=== PATIENT | female | born 1930 | race Caucasian/White ===

== ENCOUNTER 2019-04-11 15:39 | Inpatient (IN) | payer MEDICARE, BC ==
[~2019-04-11] VITALS: Ht 162.6 cm; Wt 70.5 kg
--- NOTE | ~2019-04-11 | HEMODYNAMI ---
PATIENT:CHERRI GRIMM MEDICAL RECORD: [id number] : 34 [facility] [id number] ADMISSION DATE: 04/11/19 Generatedon:04/14/201913:41 Patient name: CHERRI GRIMM Patient #: [id number] SSN: D OB: 1930 Date of study: 04/14/2019 Page: Of Hemodynamic Procedure Report Patient Data Patient Demographics Procedure consent was obtained First Name: CHERRI Gender: Female Last Name: SIRISHA : 1930 [facility] Initial: GIOVANI Age: 89 year(s) Patient #: [id number] Race: Unknown Additional ID: [id number] Contact details Address: [address] [place] [address] State: [place] City: [facility] Zip code: [address] Past Medical History Allergies Allergen Reaction Date Comments Reported Sulfa drugs 04/14/2019 Admission Admission Data Admission Date: 04/11/2019 Admission Time: 17:21 Room #: D.2123 Weight (lbs.): 180.78 Weight (kg.): 82 Lab Results Lab Result Date: 04/14/2019 Lab Result Time: 0:00 Biochemistry Name Units Result Min Max BUN mg/dl 23 --(----)-* 7 18 Creatinine mg/dl 1.2 --(---*)-- 0.6 1.3 eGFR ml/min 45 *-(----)-- 90 120 NONAFRICAN CBC Name Units Result Min Max Hematocrit % 35.4 *-(----)-- 42 54 Hemoglobin g/dl 12 *-(----)-- 13.5 17.5 Procedure Procedure Types Cath Procedure Diagnostic Procedure [facility] w/Coronaries FFR/IVUS FFR Initial Intra-Coronary IVUS Initial Sedation Charges Moderate Sedation up to 30 minutes PCI Procedure Coronary Stent Coronary Stent Initial Procedure Description Procedure Date Procedure Date: 04/14/2019 Procedure Start Time: 13:04 Procedure End Time: 13:33 Procedure Staff Name Function Steven Christopher MD Performing Physician Landon Saha RT Scrub Verenice Aviles RT Scrub Angela Cabrera RT Monitor Patricia Sandhu RN Volunteer Recruitment Coordinator Procedure Data Cath Procedure Fluoroscopy Diagnostic fluoroscopy Total fluoroscopy Time: 8.2 time: 8.2 min min Diagnostic fluoroscopy Total fluoroscopy dose: 436 dose: 436 mGy mGy Contrast Material Contrast Material Type Amount (ml) Isovue 300 95 Entry Location Entry Primary Successful Side Size Upsize Upsize Entry Closure Succes sful Closure Location (Fr) 1 (Fr) 2 (Fr) Remarks Device Remarks Femoral Right 5 Fr 6 Fr Exoseal artery Short Estimated blood loss: 10 ml Diagnostic catheters Device Type Used For End Catheter Placement MULTIPACK Pigtail 5 Fr Procedure catheter MULTIPACK JL 4.0 5Fr Procedure catheter MULTIPACK 3DRC 5Fr Procedure catheter Procedure Complications No complications Procedure Medications Medication Administration Route Dosage 0.9% NaCl I.V. 100 ml/hr Oxygen etCO2 Nasal cannula 2 l/min Lidocaine 2% added to field 20 Heparin Flush Bag added to field 2 bags (1000units/500ml NS) Versed I.V. 2 mg Fentanyl I.V. 50 mcg Fentanyl I.V. 50 mcg Heparin Bolus I.V. 4000 units Plavix P.O. 75 mg Hemodynamics Rest HGB: 12 (g/dl) Heart Rate: 93 (bpm) Snapshots Pre Cath Intra NCS Post Cath Vital Signs Time Heart Resp SPO2 etCO2 NIBP (mmHg) Rhythm Pain Sedation Rate (ipm) (%) (mmHg) Status Level (bpm) 12:42:44 96 16 98 31 156/89(127) NSR 0 (11) 10(A) , No pain 12:47:03 91 17 98 31 151/81(120) NSR 0 (11) 10(A) , No pain 12:51:19 82 13 97 33.6 138/74(107) NSR 0 (11) 10(A) , No pain 12:55:37 73 14 98 30.6 138/68(106) NSR 0 (11) 10(A) , No pain 12:59:53 69 18 97 30 139/73(102) NSR 0 (11) 10(A) , No pain 13:04:09 81 15 97 33.6 135/78(91) NSR 0 (11) 10(A) , No pain 13:08:16 83 14 98 29.1 138/76(97) NSR 0 (11) 9(A) , No pain 13:12:28 84 14 97 22.4 142/76(110) NSR 0 (11) 9(A) , No pain 13:16:46 81 16 98 32.1 140/72(107) NSR 0 (11) 9(A) , No pain 13:21:02 78 17 97 31.3 134/75(106) NSR 0 (11) 9(A) , No pain 13:25:18 79 16 98 29.8 141/71(109) NSR 0 (11) 9(A) , No pain 13:29:36 79 16 98 33.6 129/74(108) NSR 0 (11) 10(A) , No pain 13:33:48 77 10 94 32.1 136/74(106) NSR 0 (11) 10(A) , No pain Medications Time Medication Route Dose Verified Delivered Reason Notes Effectiveness by by 12:57:08 Versed I.V. 2 mg Steven Patricia for sedation Ashwin Sandhu RN 12:57:20 Fentanyl I.V. 50 Steven Patricia for sedation mcg Ashwin Sandhu RN 12:58:01 0.9% NaCl I.V. 100 Steven Patricia used for ml/hr Ashwin Sandhu display artist 12:58:08 Oxygen etCO2 2 Steven Patricia used for Nasal l/min Ashwin Sandhu procedure cannula RN 12:58:16 Lidocaine 2% added 20ml Steven Steven for local to vial Ashwin Christopher MD anesthetic field 12:58:28 Heparin Flush added 2 Steven Steven used for Bag to bags Ashwin Christopher MD procedure (1000units/500ml field NS) 13:07:31 Fentanyl I.V. 50 Steven Patricia for sedation mcg Ashwin Sandhu RN 13:28:04 Heparin Bolus I.V. 4000 Steven Patricia for verif ied units Ashwin Sandhu anticoagulation with Dr. JARON Christopher 13:28:24 Plavix P.O. 75 mg Steven Patricia for Ashwin Sandhu antiplatelet RN therapy Procedure Log Time Note 12:20:56 Signed procedure consent form obtained from patient. 12:20:59 Diagnostic Cath status Urgent 12:21:00 Time tracking: Regular hours (M-F 7:00 - 5:00) 12:21:04 Plan of Care:Hemodynamics will remain stable., Cardiac rhythm will remain stable., Comfort level will be maintained., Respiratory function will remain adequate., Patient/ family verbilizes understanding of procedure., Procedure tolerated without complication., Recovers from procedure without complications.. 12:21:29 Patient allergic to Sulfa drugs 12::17 Lab Result : BUN 23 mg/dl 12::17 Lab Result : eGFR NONAFRICAN 45 ml/min 12::17 Lab Result : Creatinine 1.2 mg/dl 12:: Lab Result : Hemoglobin 12 g/dl 12:: Lab Result : Hematocrit 35.4 % 12:23:18 Landon MARX(R) sent for patient. Start room use. 12:23:46 Patient Weight : 180.78 lbs 12:34:32 Patient received from Med II to CCL 1 Alert and oriented. Tansferred to table in Supine position. 12:34:33 Warm blankets applied, and coby hugger turned on for patient comfort. 12:34:34 Correct patient and procedure confirmed by team. 12:34:35 ECG and BP/O2 sat monitors applied to patient. 12:41:40 Vital chart was started 12:41:41 Baseline sample Acquired. 12:42:00 Rhythm: sinus rhythm 12:42:01 Full Disclosure recording started 12:42:26 H&P Date Dictated: 04/13/2019 Within 30 days and on chart.. 12:42:33 Pre-procedure instructions explained to patient. 12:42:34 Pre-op teaching completed and patient verbalized understanding. 12:42:35 Family in patients room. 12:42:37 Patient NPO since Midnight. 12:42:43 Was the patient premedicated? No 12:43:15 Is patient on blood thinner?No 12:43:18 Patient diabetic? No. 12:43:21 Previous problem with sedation/anesthesia? No ? 12:43:21 Snore? Yes 12:43:23 Sleep apnea? No 12:43:24 Deviated septum? No 12:43:25 Opens mouth fully? Yes 12:43:26 Sticks out tongue? Yes 12:43:28 Airway obstruction? No ? 12:43:29 Dentures? No ? 12:43:33 Pre procedure: right dorsailis pedis pulse 1+ Palpable, but thready & weak; easily obliterated 12:43:36 Modified Hamzah's test Ulnar < 7 seconds 12:43:39 Patient pain scale 0/10 ?. 12:43:43 IV patent on arrival in left forearm with 0.9% NaCl at [facility]. 12:43:45 Lab results completed and on chart. 12:43:49 Right Radial & Right Groin area was prepped with chlora-prep and draped in sterile fashion 12:43:51 Alarms reviewed by R. N. 12:43:51 Sharps counted by scrub and verified by R.N. 12:53:14 Use device set Radial Dx or PCI 12:53:15 ACIST Syringe (06914) opened to sterile field. 12:53:16 Bag Decanter (2002S) opened to sterile field. 12:53:17 ACIST Hand Control (98604) opened to sterile field. 12:53:17 ACIST Manifold (11461) opened to sterile field. 12:53:18 Tegaderm 4 x 4 (1626W) opened to sterile field. 12:53:19 Medline Cath Pack ([id number]) opened to sterile field. 12:53:20 MBrace Wrist Support (518270094) opened to sterile field. 12:53:23 EMERALD Guide Wire (804-590) opened to sterile field. 12:53:30 SHEATH 6FR RAIN (3452112) opened to sterile field. 12:56:58 --------ALL STOP TIME OUT------ 12:56:58 Final Timeout: patient, procedure, and site verified with staff and physician. All members of the team are in agreement. 12:57:01 Right Radial & Right Groin site verified by team. 12:57:04 Fire Safety Assessment: A--An alcohol-based skin anteseptic being used preoperatively., C--Open oxygen or nitrous oxide is being used., D--An ESU, laser, or fiber-optic light is being used. 12:57:08 Versed 2 mg I.V. was administered by Patricia Sandhu RN; for sedation; 12:57:08 Physical assessment completed. ASA score P 2 - A patient with mild systemic disease as per Steven Christopher MD. 12:57:13 3a) 45-59 Moderately reduced kidney function. 12:57:16 Maximum allowable contrast does (3.7 X eGFR X 0.75)125 ml. 12:57:20 Fentanyl 50 mcg I.V. was administered by Patricia Sandhu RN; for sedation; 12:57:20 Sedation plan: IV Moderate Sedation Medication:Versed, Fentanyl 12:58:01 0.9% NaCl 100 ml/hr I.V. was administered by Patricia Sandhu RN; used for procedure; 12:58:08 Oxygen 2 l/min etCO2 Nasal cannula was administered by Patricia Sandhu RN; used for procedure; 12:58:16 Lidocaine 2% 20ml vial added to field was administered by Steven Christopher MD; for local anesthetic; 12:58:28 Heparin Flush Bag (1000units/500ml NS) 2 bags added to field was administered by Steven Christopher MD; used for procedure; 13:04:23 Procedure started. 13:04:30 Local anesthetic to right radial artery with Lidocaine 2% by Steven Christopher MD.INITIAL ACCESS ONLY 13:06:36 UNABLE TO ADVANCE WIRE. PROCEED TO GROIN 13:06:41 Local anesthetic to right femoral artery with Lidocaine 2% by Steven Christopher MD.ADDITIONAL ACCESS 13:06:48 SHEATH 5FR Davilla (HRY513) opened to sterile field. 13:06:50 Use device set Multipack Set 13:06:54 DIAGNOSTIC Multipack 5Fr catheter set ([id number]) opened to sterile field. 13:07:11 A 5 Fr sheath was inserted into the Right Femoral artery 13:07:31 Fentanyl 50 mcg I.V. was administered by Patriica Sandhu RN; for sedation; 13:07:35 A MULTIPACK Pigtail 5 Fr catheter was advanced over the wire and used for Procedure. 13:07:42 LV gram done using JARAMILLO 13:07:45 Injector settings: Ml/sec: 10, Volume: 20, 13:08:09 EF : 60 % 13:08:10 Catheter removed. 13:08:24 A MULTIPACK JL 4.0 5Fr catheter was advanced over the wire and used for Procedure. 13:09:46 LCA angiography performed. 13:09:57 Catheter removed. 13:10:02 A MULTIPACK 3DRC 5Fr catheter was advanced over the wire and used for Procedure. 13:10:28 RCA angiography performed. 13:10:29 Catheter removed. 13:10:34 SHEATH 6FR Davilla (SDX653) opened to sterile field. 13:10:55 INFLATOR Merit BasixCompak (QH8170) opened to sterile field. 13:10:56 [place] Verrata Plus pressure wire (17265M) opened to sterile field. 13:11:05 Sheath upsized to a 6 Fr Short. 13:11:12 GUIDE 6FR XBLAD 3.5 catheter (79462341) opened to sterile field. 13:11:26 6 Fr XBLAD 3.5 guide catheter was inserted over the wire 13:18:20 [place] Verrata Plus pressure wire (14571S) opened to sterile field. 13:22:15 FFR/IFR wire advanced. 13:22:15 Wire advanced across lesion. 13:22:27 mLAD lesion measured at .96 with IFR 13:23:18 [place] Eagleye IVUS Catheter (46154F) opened to sterile field. 13:26:08 IVUS catheter advanced over wire. 13:26:09 IVUS pass to LAD lesion performed. 13:26:10 IVUS catheter removed over wire. 13:28:04 Heparin Bolus 4000 units I.V. was administered by Patricia Sandhu RN; for anticoagulation; verified with Dr. Christopher 13:28:24 Plavix 75 mg P.O. was administered by Patricia Sandhu RN; for antiplatelet therapy; 13:28:49 Place stent Inflation Number: 1 A COBRA RX 2.5 X 18 Stent was prepped and advanced across the Mid LAD 77. The stent was deployed at 11 HELEN for 0:10 (min:sec) 0. 13:29:20 Stent catheter was removed intact over wire. 13:29:21 Wire removed. 13:29:21 Guide catheter removed. 13:29:28 EXOSEAL 6Fr (EX600) opened to sterile field. 13:29:40 Sheath removed intact; hemostasis achieved with Exoseal to the Right Femoral artery. 13:29:43 Procedure ended.(Physican Out) 13:31:54 Fluoroscopy time 08.20 minutes. 13:31:58 Fluoroscopy dose: 436 mGy 13:31:58 Flurop Dose total: 436 13:32:02 Contrast amount:Isovue 300 95ml. 13:32:04 Sharps counted by scrub and verified by R.N. 13:32:10 Post-op/insertion site Right Femoral artery dressed using a 4 x 4 and Tegaderm. 13:32:13 Post-procedure physical assessment completed. ASA score P 2 - A patient with mild systemic disease as per Steven Christopher MD. 13:32:16 Post procedure rhythm: sinus rhythm 13:32:18 Estimated blood loss: 10 ml 13:32:19 Post procedure instruction explained to patient.Patient verbalizes understanding. 13:32:20 Patient needs reinforcement of post procedure teaching. 13:32:43 Procedure type changed to Cath procedure, Diagnostic procedure, LHC, LHC w/Coronaries, FFR/IVUS, FFR Initial, Intra-Coronary IVUS Initial, Sedation Charges, Moderate Sedation up to 30 minutes, PCI procedure, Coronary Stent, Coronary Stent Initial 13:33:16 Procedure and supply charges have been captured, reviewed, submitted and are correct. 13:33:18 Procedure Complication : No complications 13:33:21 Vital chart was stopped 13:33:21 See physician's report for complete and final results. 13:33:24 Report given to PCU. 13:33:26 Patient transfered to PCU with Bed. 13:33:41 Procedure ended. 13:33:41 Full Disclosure recording stopped 13:33:47 End room use (Document Last) Intervention Summary Intervention Notes Time ActionType Lesion and Equipment Action# Pressure Duration Attributes Used 13:28:49 Place stent Mid LAD COBRA RX 1 11 00:10 2.5 X 18 Stent Device Usage Item Name Manufacture Quantity Catalog Hospital Part Current Minimal Lot# / Number Charge Number Stock Stock Serial# Code ACIST Syringe Acist 1 47783 483605 652773 695479 20 (59358) Medical Systems Inc Bag Decanter Microtek 1 2001S 896014 76157 093981 5 () Medical Inc. ACIST Hand Acist 1 80332 433779 722527 357512 5 Control Medical (75750) Systems Inc ACIST Manifold Acist 1 99605 423283 623146 045118 5 (29455) Medical Systems Inc Tegaderm 4 x 4 3M 1 1626W 962383 303100 994052 5 (1626W) Medline Cath Medline 1 [id number] 598783 42328 671655 5 Pack ([id number]) MBrace Wrist Advanced 1 140-0250-00 912203 71423 188064 5 Support Vascular ([id number]) Dynamics EMERALD Guide Cardinal 1 502-455 685310 146362 517742 5 Wire (502-455) Health SHEATH 6FR Cardinal 1 8366318 590744 7830117 980262 5 RAIN (8550438) Health SHEATH 5FR Terumo 1 MHJ788 998012 100627 674135 5 Davilla (MWF078) DIAGNOSTIC Cardinal 1 VX8093 233383 21842 582544 30 Multipack 5Fr Health catheter set (MN5978) MULTIPACK Cardinal 1 162671 5 Pigtail 5 Fr Health catheter MULTIPACK JL Cardinal 1 932205 5 4.0 5Fr Health catheter MULTIPACK 3DRC Cardinal 1 332086 5 5Fr catheter Health SHEATH 6FR Terumo 1 UBY189 893387 296376 435855 40 Davilla (IGE081) INFLATOR Merit Merit 1 BY3670 785234 124685 144329 15 ITT EXIMTooele Valley HospitalLTG Federal Medical (UK7422) [facility] 2 96824Z 605053 691034874 257074 5 Verrata Plus pressure wire (13762E) GUIDE 6FR Cardinal 1 [id number] 376053 161342 932051 10 XBLAD 3.5 Health catheter ([id number]) [facility] 1 33357A 033939 565491 325530 8 [place] Eagleye IVUS Catheter (71575D) COBRA RX 2.5 X Celonova 1 684-07-49974 029918 [id number] 99303130 4 [id number] 18 stent Biosciences (084-64-86414) EXOSEAL 6Fr Cardinal 1 EX600 895118 460613 697512 10 (EX600) Health Signature Audit [place] Stage Time Signature Unsigned Intra-Procedure 04/14/2019 Angela Cabrera 1:41:49 PM RT(R) Signatures Monitor : Angela Cabrera Signature : RT Date : Time : [place] [address] [place] [address]
[2019-04-11] MEDS ORDERED: CALCIUM 250+D T1 TAB PO (15:50)
[2019-04-11] MEDS ORDERED: BAYER CHEWABLE81 MG PO (15:50)
[2019-04-11] MEDS ORDERED: AMOXICILLIN500 M1 PO (15:50)
[2019-04-11] MEDS ORDERED: CARDURA2 MG PO (15:51)
[2019-04-11] MEDS ORDERED: GLUCOSAMINE HC500 MG PO (15:51)
[2019-04-11] MEDS ORDERED: SYNTHROID50 MCG PO (15:52)
[2019-04-11] MEDS ORDERED: NAPROSYN500 MG PO (15:53)
[2019-04-11] MEDS ORDERED: ZOCOR20 MG PO (15:53)
[2019-04-11] MEDS ORDERED: METOPROLOL TART50 MG PO (15:53)
[2019-04-11] MEDS ORDERED: ZANAFLEX4 MG PO (15:54)
[2019-04-11 16:00] VITALS: BP 195/86
--- NOTE | 2019-04-11 16:10 | NUR ---
HOW SSRS DEVELOPER, HIMA, NOTIFIED THAT PT REQUIRED SUICIDE ASSESSMENT BASED ON SUICIDE ASSESSMENT.
[2019-04-11 16:27] LABS: HEMATOCRIT 38.4 % (36.0-48.0); HEMOGLOBIN 13.3 g/dL (12-16); MCH 33.5 pg (26.0-34.0); MCHC 34.6 g/dL (31.0-37.0); MCV 96.7 fL (80.0-100.0); MEAN PLATELET VOLUME 9.1 fL (7.4-10.4); PLATELET COUNT 209 10x3/uL (130-400); RBC 3.97 10x6/uL (4.00-5.40); RDW 11.8 % (11.5-14.5); WBC 6.3 10x3/uL (4.8-10.8)
--- NOTE | 2019-04-11 16:28 | NUR ---
PT GIVEN SPECIMEN CUP AND ASKED TO PROVIDE URINE SAMPLE NICO FOR ORDERED LABS.
[2019-04-11 16:40] VITALS: BP 210/93
[2019-04-11 16:40] LABS: INR 1.04 (0.85-1.17); PROTIME 13.1 SECONDS (11.6-15.0)
[2019-04-11 16:41] LABS: APTT 32.7 SECONDS (22.8-39.4)
[2019-04-11 16:43] LABS: ALBUMIN 3.7 g/dL (3.4-5.0); ALKALINE PHOSPHATASE 69 U/L (46-116); ALT (SGPT) 20 U/L (10-68); BILIRUBIN - TOTAL 0.37 mg/dL (0.2-1.3); CALC OSMOLALITY 277 mosm/kg (275-300); CARBON DIOXIDE 28.8 mmol/L (21.0-32.0); CHLORIDE - SERUM 102 mmol/L (98-107); CREATININE - SERUM 1.4 mg/dL (0.6-1.3); GLUCOSE 105 mg/dL (74-106); POTASSIUM - SERUM 4.2 mmol/L (3.5-5.1); PROTEIN - SERUM 7.3 g/dL (6.4-8.2); SODIUM 137 mmol/L (136-145); UREA NITROGEN 25 mg/dL (7-18); eGFR NON AFRICAN AMERICAN 38 mL/min (90-120)
[2019-04-11 16:52] LABS: MAGNESIUM - SERUM 2.4 mg/dL (1.8-2.4); PRO BNP 480 pg/mL (0-450); THYROID STIMULATING HORMONE 3.97 uIU/mL (0.36-3.74)
[2019-04-11 16:58] LABS: TROPONIN-I < 0.017 ng/mL (0.000-0.060)
[2019-04-11 17:21] VITALS: BP 158/71
--- NOTE | 2019-04-11 17:24 | NUR ---
DR. STANFORD NOTIFIED AND REVIEWED PATIENT'S BEHAVIOR AND ASSESSMENT RESULTS. PATIENT IS A LOW RISK PER DR. STANFORD. DR. STANFORD STATED TO GIVE RESOURCES TO PATIENT. NO FURTHER ORDERS AT THIS TIME. RESOURCES REVIEWED WITH PATIENT AND SHE VERBALIZES UNDERSTANDING.
--- NOTE | 2019-04-11 18:01 | NUR ---
ROOM 2129 ASSIGNED AT 1717, MARKED DIRTY WITH "STAT CLEAN" REQUESTED. THIS NURSE CALLED REPORT TO ARABELLA RECEIVING NURSE AT 1743. ROOM REMAINS DIRTY. WILL TRANSPORT PT TO ASSIGNED ROOM WHEN NOTIFIED THAT ASSIGNED ROOM IS CLEAN AND READY FOR PT. PT LYING IN BED, RESPIRATIONS EVEN AND UNLABORED. NO SIGNS OF DISTRESS. DINNER TRAY ORDERED FOR PT PER DIETARY ORDERS. CALL LIGHT IN REACH.
[2019-04-11 18:22] LABS: EOSINOPHILS 2 % (0-7); LYMPHOCYTES 41 % (15-50); MONOCYTES 1 % (2-11); NEUTROPHILS 56 % (40-80); PLATELET ESTIMATE NORMAL
--- NOTE | 2019-04-11 18:27 | NUR ---
URINE SAMPLE SENT TO THE LAB AT THIS TIME, PT GIVEN DINNER TRAY.
[2019-04-11 18:56] LABS: APPEARANCE CLEAR (CLEAR); BILIRUBIN NEGATIVE (NEGATIVE); COLOR YELLOW (YELLOW); GLUCOSE NEGATIVE (NEGATIVE); KETONE NEGATIVE (NEGATIVE); NITRITE NEGATIVE (NEGATIVE); PROTEIN NEGATIVE (NEGATIVE); UROBILINOGEN NORMAL (NORMAL)
--- NOTE | 2019-04-11 19:20 | NUR ---
PT IS A RECENT NEW ADMIT I TOOK REPORT AND FOUND PT IN ROOM I ASSISTED WITH COMFORT AND BEGIN TO GO THROUGH MED REC AND HISTORY BED LOW AND LOCKED CALL L;IGHT PROVIDED TO PT IV TO LEFT AC AND IS PATENT LCTA AND SKIN WARM AND DRY
[2019-04-11 20:00] VITALS: BP 140/67
[2019-04-11 23:20] LABS: CKMB 0.6 U/L (0.0-3.6); CREATINE KINASE 49 UL (21-215); TROPONIN-I < 0.017 ng/mL (0.000-0.060)
[2019-04-12] VITALS: BP 142/66
[2019-04-12 02:19] VITALS: BP 140/67; BMI 30.9
[2019-04-12 06:06] LABS: BASOPHILS 0.4 % (0-2); EOSINOPHILS 4.9 % (0-7); HEMATOCRIT 35.1 % (36.0-48.0); IMMATURE GRANULOCYTES 0.7 % (0-5); LYMPHOCYTES 42.2 % (15-50); MCH 32.5 pg (26.0-34.0); MCHC 34.2 g/dL (31.0-37.0); MCV 95.1 fL (80.0-100.0); MEAN PLATELET VOLUME 9.4 fL (7.4-10.4); MONOCYTES 9.8 % (2-11); PLATELET COUNT 209 10x3/uL (130-400); RBC 3.69 10x6/uL (4.00-5.40); RDW 11.8 % (11.5-14.5); WBC 5.7 10x3/uL (4.8-10.8)
[2019-04-12 06:35] LABS: CALC OSMOLALITY 280 mosm/kg (275-300); CARBON DIOXIDE 28.2 mmol/L (21.0-32.0); CHLORIDE - SERUM 105 mmol/L (98-107); CKMB 1.5 U/L (0.0-3.6); CREATINE KINASE 612 UL (21-215); CREATININE - SERUM 1.3 mg/dL (0.6-1.3); GLUCOSE 83 mg/dL (74-106); MAGNESIUM - SERUM 2.3 mg/dL (1.8-2.4); PHOSPHOROUS 3.8 mg/dL (2.5-4.9); SODIUM 139 mmol/L (136-145); TROPONIN-I < 0.017 ng/mL (0.000-0.060); UREA NITROGEN 24 mg/dL (7-18); eGFR NON AFRICAN AMERICAN 41 mL/min (90-120)
--- NOTE | 2019-04-12 06:40 | NUR ---
ORTHO BP 171/80 157/87 158/79
[2019-04-12 06:49] VITALS: BP 171/80
--- NOTE | 2019-04-12 07:30 | NUR ---
ALERT AND ORIENTED. TELEMERTY SHOWS SR 69, LEFT AC SL. UP AB JUAN DAVID. SCDS ON. DENIES ANY C/P OR SYNCOPE. SR. UP WITH CALL LIGHT IN REACH
[2019-04-12 09:15] VITALS: BP 172/80
--- NOTE | 2019-04-12 10:19 | NUR ---
PT TO DIALYSIS PER WHEELCHAIR
[2019-04-12 11:31] LABS: CKMB 0.2 U/L (0.0-3.6); CREATINE KINASE 26 UL (21-215); TROPONIN-I < 0.017 ng/mL (0.000-0.060)
[2019-04-12 12:16] VITALS: BP 143/71
[2019-04-12 12:35] VITALS: Ht 162.6 cm; Wt 70.5 kg
--- NOTE | 2019-04-12 16:13 | NUR ---
PT BACK IN ROOM POST STRESS TEST. SCD'S REAPPLIED. NO NEEDS AT THIS TIME.
[2019-04-12 20:00] VITALS: BP 133/82
--- NOTE | 2019-04-12 22:30 | NUR ---
REPORT RECIEVED AND ROUNDING COMPLETE. BEGINING PAITENT CARE WITH THE ASSISTANCE FROM LANA GARCIA RN.
[2019-04-13] VITALS: BP 130/76
[2019-04-13 04:00] VITALS: BP 129/70
[2019-04-13 06:38] LABS: BASOPHILS 0.2 % (0-2); EOSINOPHILS 3.4 % (0-7); HEMATOCRIT 37.3 % (36.0-48.0); HEMOGLOBIN 12.8 g/dL (12-16); IMMATURE GRANULOCYTES 0.6 % (0-5); LYMPHOCYTES 45.4 % (15-50); MCH 32.6 pg (26.0-34.0); MCHC 34.3 g/dL (31.0-37.0); MCV 94.9 fL (80.0-100.0); MEAN PLATELET VOLUME 9.1 fL (7.4-10.4); MONOCYTES 10.4 % (2-11); PLATELET COUNT 179 10x3/uL (130-400); RBC 3.93 10x6/uL (4.00-5.40); RDW 11.9 % (11.5-14.5)
[2019-04-13 06:47] LABS: WBC 8.5 10x3/uL (4.8-10.8)
[2019-04-13 07:01] LABS: ANION GAP 15.3 mmol/L (8-16); CALCIUM 8.6 mg/dL (8.5-10.1); CARBON DIOXIDE 25.5 mmol/L (21.0-32.0); MAGNESIUM - SERUM 2.3 mg/dL (1.8-2.4); PHOSPHOROUS 3.9 mg/dL (2.5-4.9); POTASSIUM - SERUM 3.8 mmol/L (3.5-5.1)
--- NOTE | 2019-04-13 07:48 | NUR ---
INITIAL ROUNDING, PATIENT IS SLEEPING SUPINE, LIGHTS AND TV OFF. WHITE BOARD UPDATED. CALL LIGHT IN REACH
[2019-04-13 08:03] VITALS: BP 129/70
--- NOTE | 2019-04-13 09:06 | NUR ---
MORNING MEDICATIONS HELD FOR PENDING STRESS TEST AT 1030
--- NOTE | 2019-04-13 09:29 | NUR ---
PER TERRI IN NUC MED, THE PATIENT CAN TAKE ALL MORNING MEDS INCLUDING HEART MEDICATIONS WITH A SMALL SIP OF WATER. MEDICATIONS ORDERED TO BE GIVEN AT THIS TIME REVIEWED WITH TERRI AND SHE AGREED THE PATIENT CAN TAKE ALL WITH A SIP OF WATER, STATING "WE ARE NOT WORRIED ABOUT THE MEDICATIONS, CONCERNED ABOUT FOOD AND CAFFINE"
[2019-04-13 12:06] VITALS: BP 138/69
--- NOTE | 2019-04-13 19:10 | NUR ---
BED SIDE REPORT RECEIVED. PT IS AAO, ASKING QUESTIONS ABOUT HEART CATH. ANSWERED QUESTIONS AND CONCERNS. PT DENIES ANY OTHER QUESTIONS AT THIS TIME. NAME AND DATE PLACED ON BOARD. PT BED LOW AND CALL LIGHT IN REACH. WILL CPOC
[2019-04-13 19:13] VITALS: BP 128/65
[2019-04-13 20:00] VITALS: BP 129/63
--- NOTE | 2019-04-13 21:42 | NUR ---
MOVED PT TO ROOM 2122 FROM 2128 TO HAVE PT CLOSER TO U
--- NOTE | 2019-04-13 23:56 | NUR ---
NIGHT MEDICATIONS GIVEN. PT SIGNED HEART CATH CONSENT AND BLOOD CONSENT. DENIES ANY QUESTIONS OR CONCERNS AT THIS TIME. PT UP TO RESTROOM, STAND BYE ASSIST. PT GAIT STEADY. DENIES FEELING DIZZY OR HAVING SOB. PT BACK INTO BED. VERBALIZED UNDERSTANDING OF NPO AFTER MIDNIGHT. NOURISHMENT REMOVED FROM BED SIDE. PT HAS NS INFUSING ORDERED. NO S/S OF DISTRESS. WILL CPOC
[2019-04-14] VITALS (7 sets, daily range): BP systolic 103–162; BP diastolic 50–102
--- NOTE | 2019-04-14 05:11 | NUR ---
ORTHOSTATIC VITALS 162/70 LYING 161/85 SITTING 109/67 STANDING 117- PULSE 18 RR 94% RA
--- NOTE | 2019-04-14 05:53 | NUR ---
UNHOOKED PT FROM IV TO GET A BATH AND UNDRESS. PT GIVEN PROTONIX AND SYNTROID WITH SMALL SIP OF WATER. PT IS AAO. HAS NO S/S OF DISTRESS. WILL CPOC
--- NOTE | 2019-04-14 06:03 | NUR ---
PT CLEANING SELF WITH CHG WIPES AND USING RESTROOM. GOWN CHANGED. PT READY FOR HEART CATH. DENIES ANY QUESTIONS OR CONCERNS. WILL CPOC
[2019-04-14 06:13] LABS: BASOPHILS 0.4 % (0-2); EOSINOPHILS 4.5 % (0-7); HEMATOCRIT 35.4 % (36.0-48.0); IMMATURE GRANULOCYTES 0.6 % (0-5); LYMPHOCYTES 36.2 % (15-50); MCH 32.3 pg (26.0-34.0); MCHC 33.9 g/dL (31.0-37.0); MCV 95.2 fL (80.0-100.0); MEAN PLATELET VOLUME 9.4 fL (7.4-10.4); MONOCYTES 8.9 % (2-11); NEUTROPHILS 49.4 % (40-80); PLATELET COUNT 181 10x3/uL (130-400); RBC 3.72 10x6/uL (4.00-5.40); WBC 6.7 10x3/uL (4.8-10.8)
[2019-04-14 06:42] LABS: ANION GAP 13.2 mmol/L (8-16); CALCIUM 8.3 mg/dL (8.5-10.1); CARBON DIOXIDE 24.4 mmol/L (21.0-32.0); CREATININE - SERUM 1.2 mg/dL (0.6-1.3); MAGNESIUM - SERUM 2.2 mg/dL (1.8-2.4); PHOSPHOROUS 3.7 mg/dL (2.5-4.9); POTASSIUM - SERUM 3.6 mmol/L (3.5-5.1)
--- NOTE | 2019-04-14 09:51 | NUR ---
I have reviewed this patient and I concur with the Shift Assessment completed by the Licensed Practical Nurse today this shift.
--- NOTE | 2019-04-14 12:42 | NUR ---
TO MOTION PICTURE PROJECTIONIST PER BED
--- NOTE | 2019-04-14 14:00 | NUR ---
RECIVED FROM RISK CONTROL MANAGER PER BED. RT GROWN DRSG C/D/I, SMALL HEMATOMA UNDER SKIN NOTED. PULSE PALP. FAMILY AT SIDE.
--- NOTE | 2019-04-14 17:25 | NUR ---
RT GROIN REMAINS C/D PULSE PALP. WITHOUT CHANGES OR DISTRESS NOTED AT THIS TIME. DENIES NEEDS.
--- NOTE | 2019-04-14 22:30 | NUR ---
INITIAL ROUNDS COMPLETED AT 1915 HRS. PT DENIED ANY DISCOMFORT. ASSESSMENT COMPLETED AT 2015 HRS. VSS. SR WITH BBB PER CM HR 73. ALERT AND ORIENTED TO PERSON, PLACE AND TIME. VAZQUEZ. IV TO LAC SL. LUNGS CTA. R GROIN CLEAN, DRY AND INTACT. SWELLING NOTED AND MARKED. PALPABLE PEDAL PULSES. PM MEDS GIVEN. PT CURRENTLY RESTING WITH EYES CLOSED. RESP EVEN AND REGULAR. SR UP X2, CALL LIGHT WITHIN REACH.
[2019-04-15] VITALS: BP 134/67
--- NOTE | 2019-04-15 00:42 | NUR ---
NO CHANGES TO R GROIN OR PEDAL PULSES. DENIES ANY DISCOMFORT. SR UP X2, CALL LIGHT WITHIN REACH.
--- NOTE | 2019-04-15 02:24 | NUR ---
PT RESTING WITH EYES CLOSED. RESP EVEN AND REGULAR. SR UP X2, CALL LIGHT WITHIN REACH.
[2019-04-15 04:00] VITALS: BP 132/62
--- NOTE | 2019-04-15 04:36 | NUR ---
VSS. NO CHANGES TO R GROIN OR PEDAL PULSES NOTED. SR UP X2, CALL LIGHT WITHIN REACH.
[2019-04-15 05:43] LABS: BASOPHILS 0.3 % (0-2); EOSINOPHILS 5.2 % (0-7); HEMATOCRIT 34.4 % (36.0-48.0); HEMOGLOBIN 11.9 g/dL (12-16); IMMATURE GRANULOCYTES 0.3 % (0-5); LYMPHOCYTES 24.1 % (15-50); MCH 32.8 pg (26.0-34.0); MCHC 34.6 g/dL (31.0-37.0); MCV 94.8 fL (80.0-100.0); MEAN PLATELET VOLUME 9.6 fL (7.4-10.4); MONOCYTES 10.4 % (2-11); NEUTROPHILS 59.7 % (40-80); PLATELET COUNT 181 10x3/uL (130-400); RBC 3.63 10x6/uL (4.00-5.40); WBC 7.5 10x3/uL (4.8-10.8)
[2019-04-15 06:07] LABS: ANION GAP 11.4 mmol/L (8-16); CALCIUM 7.9 mg/dL (8.5-10.1); CARBON DIOXIDE 24.2 mmol/L (21.0-32.0); CREATININE - SERUM 1.1 mg/dL (0.6-1.3); MAGNESIUM - SERUM 2.2 mg/dL (1.8-2.4); PHOSPHOROUS 3.8 mg/dL (2.5-4.9); POTASSIUM - SERUM 3.6 mmol/L (3.5-5.1)
--- NOTE | 2019-04-15 06:14 | NUR ---
VSS THROUGHOUT NIGHT. SR PER CM. PT DENIED ANY DISCOMFORT. NEEDS MET; WILL CONTINUE TO MONITOR.
--- NOTE | 2019-04-15 07:45 | NUR ---
ASSESSMENT COMPLETED. ALERT AND ORIENTED. TELEMERTY SHOWS SR. LEFT AC SL. RIGHT ROIN SOFT. NO BLEEDING. SMALL FIRM AREA NOTED. UP AB JUAN DAVID. LUNGS CLEAR. DENIES ANY NEEDS. WANTING TO GO HOME.
[2019-04-15 09:37] VITALS: BP 134/68
[2019-04-15] MEDS ORDERED: CARDURA4 MG PO (13:45)
[2019-04-15] MEDS ORDERED: Procardia XL PO (13:49)
[2019-04-15] MEDS ORDERED: PLAVIX75 MG PO (13:50)
--- NOTE | 2019-04-15 14:48 | MORECARE ---
CASE MANAGEMENT DISCHARGE SUMMARY PATIENT: CHERRI GRIMM GIOVANI UNIT: [id number] ADM DATE: 04/11/19 AGE: 89 : 32 SEX: F ROOM/BED: D.2123 AUTHOR: MARISABEL KINSEY PHYSICIAN: REFERRING PHYSICIAN: KAYY TENORIO MD DATE OF SERVICE: 04/15/19 Discharge Plan Patient Name: CHERRI GRIMM Facility: [facility]:[place] : 1930 Planned Disposition: Home Anticipated Discharge Date: 04/15/19 Discharge Date: Expected LOS: 4 Initial Reviewer: [email or web address] Initial Review Date: 04/11/2019 Generated: 04/15/19 3:48 pm Patient Name: CHERRI GRIMM Page [phone] at 1448 All edits/amendments must be made on the electronic document DICTATION DATE: 04/15/191446 TRACTOR OPERATOR HELPER: EDE 04/15/19 1447 RPT#: [id number] DC DATE: STATUS: ADM IN [facility] [address] [place] [address] END OF REPORT
--- NOTE | 2019-04-15 14:57 | MORECARE ---
CASE MANAGEMENT DISCHARGE SUMMARY PATIENT: CHERRI GRIMM GIOVANI UNIT: [id number] ADM DATE: 04/11/19 AGE: 89 : 32 SEX: F ROOM/BED: D.2123 AUTHOR: MARISABEL KINSEY PHYSICIAN: REFERRING PHYSICIAN: KAYY TENORIO MD DATE OF SERVICE: 04/15/19 Discharge Plan Patient Name: CHERRI GRIMM [facility] [facility] 1930 Planned Disposition: Home Anticipated Discharge Date: 04/15/19 Discharge Date: Expected LOS: 4 Initial Reviewer: [email or web address] Initial Review Date: 04/11/2019 Generated: 04/15/19 3:57 pm DCPIA - Discharge Planning Initial Assessment Updated by [email or web address]: Debbie Aparicio on 04/15/19 2:50 pm * Is the patient Alert and Oriented? Yes * PCP DR Doss in [place] * Pharmacy [facility] in [place] * Preadmission Environment Home Alone * ADLs Independent * Equipment Other * Other Equipment Has emergency call button * List name and contact numbers for known caregivers / representatives who currently or will assist patient after discharge: Cici Moss- [phone]- daughter Lives in [place] * Verbal permission to speak to the caregivers and representatives has been obtained from the patient. Yes * Community resources currently utilized None * Please name any agencies selected above. N/A * Additional services required to return to the preadmission environment? No * Can the patient safely return to the preadmission environment? Yes Last DP export: 04/15/19 1:48 p Patient Name: CHERRI GRIMM Page [phone] at 1457 All edits/amendments must be made on the electronic document DICTATION DATE: 04/15/191456 AMUSEMENT EQUIPMENT OPERATOR: EDE 04/15/191456 RPT#: [id number] DC DATE: STATUS: ADM IN [facility] [address] [place] [address] END OF REPORT
--- NOTE | 2019-04-15 14:58 | NUR ---
PT DISCHARGED. IV DCD WITH TIP INTACT. INSTRUCTIONS GIVEN TO PT. TO PRIVATE CAR PER WHEELCHAIR
--- NOTE | 2019-04-15 15:04 | MORECARE ---
CASE MANAGEMENT DISCHARGE SUMMARY PATIENT: CHERRI GRIMM GIOVANI UNIT: [id number] ADM DATE: 04/11/19 AGE: 89 : 32 SEX: F ROOM/BED: D.4223 AUTHOR: AMELIE,DOC PHYSICIAN: REFERRING PHYSICIAN: KAYY TENORIO MD DATE OF SERVICE: 04/15/19 Discharge Plan Patient Name: CHERRI GRIMM Facility: [facility]:[place] : 1930 Planned Disposition: Home Anticipated Discharge Date: 04/15/19 Discharge Date: Expected LOS: 4 Initial Reviewer: [email or web address] Initial Review Date: 04/11/2019 Generated: 04/15/19 4:04 pm Comments DCP- Discharge Planning Updated by [email or web address]: Debbie Aparicio on 04/15/19 1:[address] PATIENT FOR DISCHARGE TO HOME TODAY CM VISITED WITH THE PATIENT AT THE BEDSIDE.. SHE WAS UP IN HER ROOM AT THE SINK. MOVING ABOUT WELL. HER DAUGHTER, YVAN LUCIANO , IS AT THE BEDSIDE. SHE PROVIDING TRANSPORTATION TO HOME. THE DAUGHTER WILL ALSO BE STAYING WITH THE PATIENT UNTIL SHE FEELS SHE IS DOING WELL. THE PATIENT'S DAUGHTER ALSO LIVES IN [place]. THE DAUGHTER AND SON IN LAW CHECK ON THE PATIENT FREQUENTLY. PATIENT ALSO HAS AN EMERGENCY CALL BUTTON AVAILABLE. SHE DOES NOT HAVE ANY DME. DOES NOT UTILIZE ANY COMMUNITY OR HOME HEALTH SERVICES. SHE DENIES ANY NEEDS AND FEELS SAFE IN HER HOME. DR JUNIOR IS HER PCP. SHE WOULD APPRECIATE HER MED LIST, CONSULTS AND TESTING REPORTS BE FORWARDED TO HIS OFFICE. NO APPARENT NEED ASSESSED. DCPIA - Discharge Planning Initial Assessment Updated by [email or web address]: Debbie Aparicio on 04/15/19 2:50 pm * Is the patient Alert and Oriented? Yes * PCP DR Junior in [place] * Pharmacy [facility] in [place] * Preadmission Environment Home Alone * ADLs Independent * Equipment Other * Other Equipment Has emergency call button * List name and contact numbers for known caregivers / representatives who currently or will assist patient after discharge: Yvan Luciano- [phone]- daughter Lives in [place] * Verbal permission to speak to the caregivers and representatives has been obtained from the patient. Yes * Community resources currently utilized None * Please name any agencies selected above. N/A * Additional services required to return to the preadmission environment? No * Can the patient safely return to the preadmission environment? Yes Last DP export: 04/15/19 1:57 p Patient Name: CHERRI GRIMM Page [id number] at 1504 All edits/amendments must be made on the electronic document DICTATION DATE: 04/15/19 150 RUMPER: EDE 04/15/19 1504 RPT#: [id number] DC DATE: STATUS: ADM IN [facility] [address] [place] [address] END OF REPORT
--- NOTE | 2019-04-17 09:12 | MORECARE ---
CASE MANAGEMENT DISCHARGE SUMMARY PATIENT: CHERRI GRIMM GIOVANI UNIT: [id number] ADM DATE: 04/11/19 AGE: 89 : 32 SEX: F ROOM/BED: D.8463 AUTHOR: AMELIEDOC PHYSICIAN: REFERRING PHYSICIAN: KAYY TENORIO MD DATE OF SERVICE: 04/17/19 Discharge Plan Patient Name: CHERRI GRIMM Facility: [facility]:[place] : 1930 Planned Disposition: Home Anticipated Discharge Date: 04/15/19 Discharge Date: 04/15/2019 Expected LOS: 4 Initial Reviewer: [email or web address] Initial Review Date: 04/11/2019 Generated: 04/17/19 10:12 am Comments DCP- Discharge Planning Updated by [email or web address]: Debbie Aparicio on 04/15/19 1:[address] PATIENT FOR DISCHARGE TO HOME TODAY CM VISITED WITH THE PATIENT AT THE BEDSIDE.. SHE WAS UP IN HER ROOM AT THE SINK. MOVING ABOUT WELL. HER DAUGHTER, YVAN LUCIANO , IS AT THE BEDSIDE. SHE PROVIDING TRANSPORTATION TO HOME. THE DAUGHTER WILL ALSO BE STAYING WITH THE PATIENT UNTIL SHE FEELS SHE IS DOING WELL. THE PATIENT'S DAUGHTER ALSO LIVES IN [place]. THE DAUGHTER AND SON IN LAW CHECK ON THE PATIENT FREQUENTLY. PATIENT ALSO HAS AN EMERGENCY CALL BUTTON AVAILABLE. SHE DOES NOT HAVE ANY DME. DOES NOT UTILIZE ANY COMMUNITY OR HOME HEALTH SERVICES. SHE DENIES ANY NEEDS AND FEELS SAFE IN HER HOME. DR JUNIOR IS HER PCP. SHE WOULD APPRECIATE HER MED LIST, CONSULTS AND TESTING REPORTS BE FORWARDED TO HIS OFFICE. NO APPARENT NEED ASSESSED. DCPIA - Discharge Planning Initial Assessment Updated by [email or web address]: Debbie Aparicio on 04/15/19 2:50 pm * Is the patient Alert and Oriented? Yes * PCP DR Junior in [place] * Pharmacy [facility] in [place] * Preadmission Environment Home Alone * ADLs Independent * Equipment Other * Other Equipment Has emergency call button * List name and contact numbers for known caregivers / representatives who currently or will assist patient after discharge: Yvan Luciano- [phone]- daughter Lives in [facility] * Verbal permission to speak to the caregivers and representatives has been obtained from the patient. Yes * Community resources currently utilized None * Please name any agencies selected above. N/A * Additional services required to return to the preadmission environment? No * Can the patient safely return to the preadmission environment? Yes Last DP export: 04/15/19 2:04 p Patient Name: CHERRI GRIMM Page [id number] at 0912 All edits/amendments must be made on the electronic document DICTATION DATE: 04/17/19910 TURNING SANDER OPERATOR: EDE 04/17/19910 RPT#: [id number] DC DATE:04/15/19 STATUS: DIS IN [facility] [address] [place] [address] END OF REPORT
--- NOTE | 2019-04-17 18:38 | CN ---
PATIENT NAME:CHERRI MAHONEY MEDICAL RECORD: [id number] : 34 LOCATION:D. D.2123 ADMIT DATE: 04/11/19 ACCOUNT: [id number] CONSULTING PHYSICIAN: SAUL JACKSON MD REFERRING PHYSICIAN: KAYY TENORIO MD DATE OF CONSULTATION: 04/12/2019 CARDIOLOGY CONSULTATION DATE OF SERVICE: 04/12/2019 DIAGNOSES: 1. Angina. 2. Abnormal ECG. 3. Hypertension. 4. Paroxysmal atrial fibrillation. 5. Near-syncope. 6. Hyperlipidemia. HISTORY OF PRESENT ILLNESS: Mrs. Mahoney has a history of hypertension, paroxysmal atrial fibrillation, but no history of ischemic heart disease. Yesterday, she did feel palpitations that she feels with her atrial fibrillation, but she got severe chest discomfort. She then had near-syncope. When the chest discomfort got worse, she called EMS. She has T-wave inversions inferolaterally and her initial EKG did not have inferior T-wave inversions. Now, she has changes on her EKG. She is currently pain free. Her systolic blood pressure has been a problem, it is running in the 160-200 range. She is only on Cardura 2 mg a day as well as metoprolol 50 mg a day. Her heart rates in the 60s. Her systolic blood pressures are still high. PHYSICAL EXAMINATION: GENERAL APPEARANCE: Well-nourished, well-developed, appears stated age. Level of distress, comfortable. PSYCHIATRIC: Mental status, alert, normal affect. Orientation, oriented to time, place and person. EYES: Lids and conjunctiva, noninjected. No discharge, no pallor. ENT: Lips, teeth, gums, normal dentition. Oropharynx, no cyanosis, no pallor. NECK: Carotid arteries, bilateral normal upstroke, no bruits, no thrills. JUGULAR VEINS: No jugular venous pressure or distention. CERVICAL LYMPH NODES: Nontender, nonenlarged. THYROID: Not enlarged. Nontender. No nodules. LUNGS: Respiratory effort, unlabored. CHEST: Normal curvature. No thoracic deformity. No chest wall tenderness. Percussion, resonant. Auscultation, clear. No wheezes, no rales, no rhonchi. CARDIOVASCULAR: Precordial exam, nondisplaced. No heaves or pericardial thrills. Rate and rhythm, regular. Heart sounds, normal S1, normal S2. No S3, no gallop, no rub. Systolic murmur, not heard. Diastolic murmur, not heard. EXTREMITIES: No cyanosis, no edema. Peripheral pulses, full and equal in all extremities, except as noted. No bruits appreciated. ABDOMEN: Soft, nondistended. Normal aorta. No bruit. Nontender. No masses. Liver, nontender, no hepatomegaly. Spleen, nontender, no splenomegaly. MUSCULOSKELETAL: No joint tenderness. No joint swelling. No erythema. NEUROLOGICAL: Normal gait, normal strength, normal tone. SKIN: Warm and dry. CONSULT REPORT [id number] CHERRI MAHONEY OVERALL IMPRESSION: Angina with EKG changes, T-wave inversions and changing EKGs with serial EKGs. Her troponin is negative. Her blood pressure is not under good control. At this time, we will add a calcium channel db, Procardia, increase the Cardura to 8 mg b.i.d. We will risk stratify with stress testing and Cardiolite imaging. Further care depends upon findings of the stress test. TRANSINT:[id number] Voice Confirmation ID: [id number] DOCUMENT ID: [id number] SAUL JACKSON MD at 1838 CC: [id number] DICTATION DATE: 04/12/19917 ELECTRICAL SOLDERER: 04/12/19 1004 DIS IN 04/15/19 [facility] [address] [place] [address]
--- NOTE | 2019-04-17 18:38 | ST ---
PATIENT:CHERRI GRIMM GIOVANI MEDICAL RECORD: [id number] SEX: F LOCATION:D. D.212 ORDER #: ADMISSION DATE: 04/11/19 AGE OF PATIENT: 89 REFERRING PHYSICIAN: INTERPRETING PHYSICIAN: SAUL JACKSON MD DATE OF SERVICE: 04/13/2019 Nuclear Stress Test INDICATIONS: Chest discomfort. PROCEDURE IN DETAIL: She was exercised on standard Lexiscan protocol with 33 mCi of sestamibi injected at peak stress and rest images were done previously with 28 mCi. FINDINGS: Gated SPECT reveals preserved ejection fraction at 65% with good wall motioning, thickening, and brightening throughout all segments. SPECT Imaging: Cardiolite was used as myocardial fusion agent. There is reversibility anteriorly as well as laterally. This includes the basal, mid, and apical lateral segments and basal anterior and mid anterior. Degree of reversibility is mild. The amount of myocardium involved is large. OVERALL IMPRESSION: 1. This is an intermediate risk nuclear stress test relatively large ischemic burden anteriorly and laterally. 2. Gated SPECT reveals preserved ejection fraction is 65%. In this patient with ongoing symptomatology, the current scan does suggest the presence of hemodynamically significant coronary artery disease. We will proceed with coronary angiography as a followup study. TRANSINT:[id number] Voice Confirmation ID: [id number] DOCUMENT ID: [id number] SAUL JACKSON MD at 1838 CC: [id number] DICTATION DATE: 04/13/19 1540 FLIGHT TOWER DISPATCHER: 04/13/19 2355 DIS IN 04/15/19 [place] [id number] [place] [id number]
--- NOTE | 2019-04-17 18:38 | EC ---
PATIENT:CHERRI GRIMM DATE OF SERVICE: 04/11/19 SEX: F MEDICAL RECORD: [id number] DATE OF : [birth year] LOCATION:D.M2 D.212 AGE OF PATIENT: 89 ADMISSION DATE: 04/11/19 REFERRING PHYSICIAN: INTERPRETING PHYSICIAN: SAUL JACKSON MD ECHOCARDIOGRAM REPORT ECHO CHARGES 4 ECHO COMPLETE Date: 04/12/19 CLINICAL DIAGNOSIS: NEAR SYNCOPE/CHEST PAIN, HX OF HTN, ARRHYTHMIA ECHOCARDIOGRAPHIC MEASUREMENTS (adult normal given) AC root (d.<3.7cm) 3.3 cm LV Septum d (<1.2 cm> 1.69 cm Valve Excursion 1.6 cm LV Septum (systole) 2.0 cm Left Atria (s.<4.0cm> 4.0 cm LVPW d(<1.2cm) 1.9 cm RV (d.<2.3cm) 3.5 cm LVPW (sytole) 2.0 cm LV diastole(<5.6CM) 4.0 cm MV E-F(>70mm/sec) cm LV systole 2.3 cm LVOT Diameter 1.8 cm MV exc.(>10mm) 1.6 cm Est.ejection fraction (50-75%) % DOPPLER: LVIT cm/sec A 80.0 cm/sec E 56.0 cm/sec LA cm/sec RVSP 21 mmHg LVOT 93 cm/sec AOP1/2T m/s Asc. Ao 147 cm/sec RVOT 94 cm/sec RA cm/sec PA 106 cm/sec AV Gradient Peak 8.69 mmHg AV Mean 4.56 mmHg AV Area 2.2 cm MV Gradient Peak 5.52 mmHg MV Mean 2.04 mmHg MV Area cm COMMENTS: Adoption Agent: Gene FELICIANO Lineman A Class: 3 Dr. Dior TAPE# PACS Pericardial Effusion N DATE OF SERVICE: 04/12/2019 FINDINGS: 1. Left ventricular chamber size is within normal limits. Left ventricular systolic function is normal. Overall ejection fraction is estimated at 65%. 2. Left atrium is enlarged at 4.0 cm. Right atrium and right ventricular chambers sizes are as well mildly dilated. 3. Valvular structures have normal structure and motion. 4. Doppler interrogation reveals trace tricuspid regurgitation. No other valvular insufficiency or stenosis. Pulmonary systolic pressure is estimated at ECHOCARDIOGRAM REPORT [id number] BRACEWELL,CHERRI GIOVANI 21 mmHg. 5. No evidence of pericardial effusion or left ventricular thrombus. TRANSINT:[id number] Voice Confirmation ID: [id number] DOCUMENT ID: [id number] SAUL JACKSON MD at 1838 CC: [id number] DICTATION DATE: 04/12/19 170 HIDE MILL WORKER: 04/12/19 190 DIS IN 04/15/19 [facility] [address] [place] [id number]
== END 2019-04-15 15:18 | disposition home or self-care (01) | DRG 312 ==
LOC: D.ER 15:39 → D.M2 17:21
PROVIDERS: Family Medicine; ADMIT Family Medicine; ATTEND Family Medicine
DX: R55 Syncope and collapse (principal); N17.9 Acute kidney failure, unspecified; I10 Essential (primary) hypertension; I48.0 Paroxysmal atrial fibrillation; R94.30 Abnormal result of cardiovascular function study, unspecified; E03.9 Hypothyroidism, unspecified; E83.51 Hypocalcemia; J02.0 Streptococcal pharyngitis; R07.9 Chest pain, unspecified; E78.5 Hyperlipidemia, unspecified

== ENCOUNTER 2019-06-27 10:12 | Outpatient (CLI) | payer MEDICARE, BC ==
[~2019-06-27] VITALS: Ht 162.6 cm; Wt 71.4 kg
--- NOTE | ~2019-06-27 | HEMODYNAMI ---
PATIENT:CHERRI GRIMM MEDICAL RECORD: [id number] : 34 LOCATION:[facility]EL[facility] ADMISSION DATE: 06/27/19 Generatedon:06/27/201916:12 Patient name: CHERRI GRIMM Patient #: [id number] SSN: D OB: 1930 Date of study: 06/27/2019 Page: Of Hemodynamic Procedure Report Patient Data Patient Demographics Procedure consent was obtained First Name: CHERRI Gender: Female Last Name: SIRISHA : 1930 [facility] Initial: GIOVANI Age: 89 year(s) Patient #: [id number] Race: Unknown Additional ID: [id number] Contact details Address: [address] [place] [address] State: [place] City: [facility] Zip code: [address] Past Medical History Allergies Allergen Reaction Date Comments Reported Sulfa drugs 04/14/2019 Sulfa drugs 06/27/2019 Admission Admission Data Admission Date: 06/27/2019 Admission Time: 10:12 Height (in.): 63.78 BSA: 1.73 (m2) Height (cm.): 162 BMI: 25.91 (kg/m2) Weight (lbs.): 149.92 Weight (kg.): 68 Lab Results Lab Result Date: 06/27/2019 Lab Result Time: 0:00 Biochemistry Name Units Result Min Max BUN mg/dl 31 --(----)-* 7 18 Creatinine mg/dl 1.3 --(---*)-- 0.6 1.3 eGFR ml/min 41 *-(----)-- 90 120 NONAFRICAN CBC Name Units Result Min Max Hematocrit % 35.1 *-(----)-- 42 54 Hemoglobin g/dl 12.6 -*(----)-- 13.5 17.5 Procedure Procedure Types Cath Procedure Diagnostic Procedure PPM/ICD PPM Dual Implant Sedation Charges Moderate Sedation up to 15 minutes Procedure Description Procedure Date Procedure Date: 06/27/2019 Procedure Start Time: 15:35 Procedure End Time: 16:06 Procedure Staff Name Function Angela Cabrera RT Monitor Taylor Marvinen RT Scrub Filiberto Rutherford RN Nurse Shay Irving MD Performing Physician Jefe Winter MD Assisting physician Procedure Data Cath Procedure Fluoroscopy Diagnostic fluoroscopy Total fluoroscopy Time: 6.9 time: 6.9 min min Diagnostic fluoroscopy Total fluoroscopy dose: 57 dose: 57 mGy mGy Estimated blood loss: 10 ml Procedure Complications No complications Procedure Medications Medication Administration Route Dosage 0.9% NaCl I.V. 100 ml/hr Oxygen etCO2 Nasal cannula 3 l/min Lidocaine 1% added to field 20 Ancef (1Gm/50ml NS) I.V.P.B 1 g Ancef Irrigation Topical 1 g (1gm/500ml NS) Versed I.V. 2 mg Fentanyl I.V. 100 mcg Versed I.V. 1 mg Fentanyl I.V. 50 mcg Hemodynamics Rest BSA: 1.73 (m2) HGB: 12.6 (g/dl) O2 Consumption: Estimated: 175.67 (ml/min) O2 Co nsumption indexed: Estimated:101.54 (ml/min/m) Heart Rate: 105 (bpm) Snapshots Pre Cath Intra NCS Post Cath Vital Signs Time Heart Resp SPO2 etCO2 NIBP (mmHg) Rhythm Pain Sedation Rate (ipm) (%) (mmHg) Status Level (bpm) 15:22:45 106 16 97 29.1 169/100(142) NSR 0 (11) 10(A) , No pain 15:27:05 105 12 96 32.1 166/91(130) NSR 0 (11) 10(A) , No pain 15:31:21 99 13 97 35.8 157/83(120) NSR 0 (11) 10(A) , No pain 15:35:39 98 11 95 34.4 152/78(118) NSR 0 (11) 10(A) , No pain 15:39:56 232 17 94 34.4 153/82(120) NSR 0 (11) 10(A) , No pain 15:44:10 103 11 98 34.4 160/92(120) NSR 0 (11) 10(A) , No pain 15:48:28 97 11 95 36.6 137/84(111) NSR 0 (11) 10(A) , No pain 15:52:37 111 13 96 32.8 150/88(107) NSR 0 (11) 10(A) , No pain 15:56:58 94 10 95 33.6 142/75(113) NSR 0 (11) 10(A) , No pain 16:01:11 103 10 97 35.8 148/79(115) NSR 0 (11) 10(A) , No pain 16:05:23 97 9 98 38.1 147/90(115) NSR 0 (11) 10(A) , No pain Medications Time Medication Route Dose Verified Delivered Reason Notes Effectiv eness by by 15:23:24 0.9% NaCl I.V. 100 Filiberto Filiberto Per ml/hr Sangeeta Rutherford physician RN RN 15:23:35 Oxygen etCO2 3 Filiberto Filiberto for low 02 Nasal l/min Lorigan Lorigan sats cannula RN RN 15:23:52 Lidocaine added 20ml Filiberto Filiberto for local 1% to vial Lorigan Lorigan anesthetic field x2 RN RN 15:24:03 Ancef I.V.P.B 1 g Filiberto Filiberto Per (1Gm/50ml Sangeeta Clarkigan physician NS) RN RN 15:24:15 Ancef Topical 1 g Filiberto Filiberto used for Irrigation Lorigan Lorigan procedure (1gm/500ml RN RN NS) 15:37:37 Versed I.V. 2 mg Filiberto Filiberto for Lorigan Lorigan sedation RN RN 15:37:45 Fentanyl I.V. 100 Filiberto Filiberto for mcg Lorigan Lorigan sedation RN RN 15:39:07 Versed I.V. 1 mg Filiberto Filiberto for Lorigan Lorigan sedation RN RN 15:52:42 Fentanyl I.V. 50 Filiberto Filiberto for mcg Lorigan Lorigan sedation RN gate keeper Log Time Note 15:00:36 Filiberto Rutherford RN sent for patient. Start room use. 15:09:25 Signed procedure consent form obtained from patient. 15:09:27 Procedure Status Elective Heart Cath (OP). 15:09:29 Time tracking: Regular hours (M-F 7:00 - 5:00) 15:09:33 Plan of Care:Hemodynamics will remain stable., Cardiac rhythm will remain stable., Comfort level will be maintained., Respiratory function will remain adequate., Patient/ family verbilizes understanding of procedure., Procedure tolerated without complication., Recovers from procedure without complications.. 15:09:53 H&P Date Dictated: 06/15/2019 Within 30 days and on chart., H&P Addendum completed by physician on day of procedure. (MUST COMPLETE FOR ALL OUTPATIENTS). 15:10:15 Patient allergic to Sulfa drugs 15:12:38 Patient Weight : 149.92 lbs 15:12:40 Patient Height : 63.78 inches 15:13:55 Use device set RICHARD PPM 15:13:56 2-0 Ticron Multipack ([id number]) opened to sterile field. 15:13:56 3-0 Vicryl Single Pack [id number] opened to sterile field. 15:13:56 5-0 Monocryl PS2 [id number] opened to sterile field. 15:13:57 Cautery Tip Hose Operator opened to sterile field. 15:13:57 Cautery Pushbutton Pencil opened to sterile field. 15:13:58 Mepilex Dressing ([id number]) opened to sterile field. 15:14:00 Immobilizer Sling Medium opened to sterile field. 15:14:09 Patient received from Pre/Post Procedure Room to CCL 3 Alert and oriented. Tansferred to table in Supine position. 15:14:10 Warm blankets applied, and coby hugger turned on for patient comfort. 15:14:10 Correct patient and procedure confirmed by team. 15:14:10 ECG and BP/O2 sat monitors applied to patient. 15:21:35 Vital chart was started 15:21:43 Rhythm: sinus tachycardia 15:21:44 Full Disclosure recording started 15:21:49 Pre-procedure instructions explained to patient. 15:21:50 Pre-op teaching completed and patient verbalized understanding. 15:21:51 Family in waiting room. 15:21:53 Patient NPO since Midnight. 15:21:55 Is patient on blood thinner?No 15:21:56 Patient diabetic? No. 15:21:59 Previous problem with sedation/anesthesia? No ? 15:22:00 Snore? Yes 15:22:01 Sleep apnea? No 15:22:03 Deviated septum? No 15:22:05 Opens mouth fully? Yes 15:22:06 Sticks out tongue? Yes 15:22:09 Airway obstruction? Yes ASTHMA 15:22:12 Dentures? No ? 15::21 IV patent on arrival in left antecubital with 0.9% NaCl at [facility]. 15::50 Lab Result : BUN 31 mg/dl :: Lab Result : eGFR NONAFRICAN 41 ml/min 15::50 Lab Result : Creatinine 1.3 mg/dl 15:: Lab Result : Hemoglobin 12.6 g/dl 15:: Lab Result : Hematocrit 35.1 % 15::54 Lab results completed and on chart. 15::58 Left chest area was prepped with chlora-prep and draped in sterile fashion 15:: Alarms reviewed by R. N. :: Sharps counted by scrub and verified by R.N. 15:23:07 [employer] medical detail representative ANDRES TORRES present for procedure. 15:23:24 0.9% NaCl 100 ml/hr I.V. was administered by Filiberto Rutherford RN; Per physician; 15::35 Oxygen 3 l/min etCO2 Nasal cannula was administered by Filiberto Rutherford RN; for low 02 sats; 15:23:52 Lidocaine 1% 20ml vial x2 added to field was administered by Filiberto Rutherford RN; for local anesthetic; 15:24:03 Ancef (1Gm/50ml NS) 1 g I.V.P.B was administered by Filiberto Rutherford RN; Per physician; 15:24:15 Ancef Irrigation (1gm/500ml NS) 1 g Topical was administered by Filiberto Rutherford RN; used for procedure; 15::49 Baseline sample Acquired. 15::58 Grounding pad site Left thigh. 15::59 Grounding pad site free from injury. 15:32:34 --------ALL STOP TIME OUT------ 15:32:35 Final Timeout: patient, procedure, and site verified with staff and physician. All members of the team are in agreement. 15:32:39 Left chest site verified by team. 15:32:42 Fire Safety Assessment: A--An alcohol-based skin anteseptic being used preoperatively., B--The operative or invasive procedure is being performed above the xiphoid process or in the oropharynx., C--Open oxygen or nitrous oxide is being used. 15:32:45 Physical assessment completed. ASA score P 2 - A patient with mild systemic disease as per Shay Irving MD. 15:33:11 Sedation plan: IV Moderate Sedation Medication:Versed, Fentanyl 15:35:01 Pre sharps counted by scrub and verified by RN: Sutures: 7; Sponges: 5; Stick needles: 2; Skin needles: 2; Blade: 1; Cautery: 1 15:35:45 Procedure started. 15:35:49 Lidocaine 1% was administered to left subclavicular area by Jefe Winter MD . 15:37:37 Versed 2 mg I.V. was administered by Filiberto Rutherford RN; for sedation; 15:37:45 Fentanyl 100 mcg I.V. was administered by Filiberto Rutherford RN; for sedation; 15:38:04 Medtronic 4074-52 PPM Lead opened to sterile field. 15:38:05 Med[employer]onic 4574-45 PPM Lead opened to sterile field. 15:39:07 Versed 1 mg I.V. was administered by Filiberto Rutherford RN; for sedation; 15:39:20 Incision made to left subclavicular area. 15:40:41 Generator pocket made/opened. 15:40:49 Left subclavian vein accessed with 7Fr Peel Away Sheath. 15:41:47 Left subclavian vein accessed with 7Fr Peel Away Sheath. 15:42:13 Ventricular lead inserted and advanced. 15:42:15 Atrial lead inserted and advanced. 15:45:36 Ventricular lead positioned. 15:45:46 Ventricular lead tested. 15:46:14 Ventricular lead positioned. 15:46:21 Ventricular lead tested. 15:49:19 Ventricular lead tested. 15:52:42 Fentanyl 50 mcg I.V. was administered by Filiberto Rutherford RN; for sedation; 15:53:48 Atrial lead positioned. 15:54:42 Atrial lead tested. 15:55:31 Peel-a-way sheath was split and removed. 15:55:32 Peel-a-way sheath was split and removed. 15:56:06 PPM Dual was attached to lead(s) and inserted into pocket. 15:56:19 PPM Dual was inserted subcutaneously to left chest. 15:56:[address] [employer] FX HERNAN XT [address] Generator [id number] opened to sterile field. 15:56:29 Atrial lead attachment was completed with 2-0 ticron. 15:56:32 Ventricular lead attachment was completed with 2-0 ticron. 15:56:37 Generator was sutured in place with 2-0 ticron. 15:56:39 Device pocket was irrigated with Ancef. 16:01:09 Subcutaneous closure was completed with 3-0 vicryl. 16:01:37 Skin closure was completed with 5-0 monocryl. 16:04:47 Lt Chest incision was dressed with Mepilex dressing. 16:05:06 Post sharps counted by scrub and verified by RN: Sutures: 7; Sponges: 5; Stick needles: 2; Skin needles: 2; Blade: 1; Cautery: 1 16:05:11 Procedure ended.(Physican Out) 16:05:34 Fluoroscopy time 06.90 minutes. 16:05:40 Flurop Dose total: 57 16:05:40 Fluoroscopy dose: 57 mGy 16:05:55 Post-procedure physical assessment completed. ASA score P 2 - A patient with mild systemic disease as per Jefe Winter MD. 16:06:08 Post procedure rhythm: paced 16:06:11 Estimated blood loss: 10 ml 16:06:12 Post procedure instruction explained to patient.Patient verbalizes understanding. 16:06:12 Patient needs reinforcement of post procedure teaching. 16:06:29 Procedure type changed to Cath procedure, Diagnostic procedure, PPM/ICD, PPM Dual Implant, Sedation Charges, Moderate Sedation up to 15 minutes 16:06:42 Procedure and supply charges have been captured, reviewed, submitted and are correct. 16:06:45 Procedure Complication : No complications 16:06:47 Vital chart was stopped 16:06:47 See physician's report for complete and final results. 16:06:49 Report given to Med II. 16:06:52 Patient transfered to Med II with Bed. 16:06:54 Procedure ended. 16:06:54 Full Disclosure recording stopped 16:06:59 End room use (Document Last) 16:08:27 Parameters-- Generator: Mode: AAIR/DDDR. Lower Rate: 70bpm. Upper Rate: 130bpm. 16:09:20 Parameters--Ventricular P/R Wave: 2.9mV. Current: ?mA; Threshold: .4V; Impedence: 1026OHMS. 16:09:42 Parameters--Atrial P/R Wave: 1mV. Current: ?mA; Threshold: .4V; Impedence: 380OHMS. Device Usage Item Name Manufacture Quantity Catalog Hospital Part Current Minima l Lot# / Serial# Number Charge Number Stock Stock Code 2-0 Ticron Ethicon 5 [id number] 297680 33016 099823 5 Multipack ([id number]) 3-0 Vicryl Ethicon 1 [id number] 057446 423148 187300 5 Single Pack [id number] 5-0 Monocryl Ethicon 1 [id number] 149136 371478 577361 5 PS2 Y495G Cautery Tip Microtek 1 [id number] [id number] 606072 728127 5 Hose [employer] Cautery Microtek 1 [id number] [id number] 44961 [id number] 5 Pushbutton [employer] Pencil Mepilex Cardinal 1 193123 409146 157137 226153 5 [facility] ([id number]) Immobilizer Cardinal 1 [id number] 569908 477819 755757 5 Sling Medium Health Medtronic Medtronic 1 4074-52 541087 357661 853810 5 [id number] 4074-52 PPM EXP: Lead 04/14/2021 [id number] Medtronic Medtronic 1 4574-45 442314 630352 434841 5 [id number] 4574-45 PPM EXP:08/24/2020 Lead [id number] Medtronic Medtronic 1 [id number] 960936 [id number] [id number] [id number] EXP: Generator 10/31/2020 [id number] Signature Audit Dalton Stage Time Signature Unsigned Intra-Procedure 06/27/2019 Angela Cabrera 4:10:07 PM RT(R) Intra-Procedure 06/27/2019 Filiberto 4:12:05 PM Sangeeta SALMERON Intra-Procedure 06/27/2019 Shay Camilo 4:12:20 PM Ok [id number] [place] [address]
[~2019-06-27 10:12] MED LIST: AMOXICILLIN500 M1 PO; BAYER CHEWABLE81 MG PO; CALCIUM 250+D T1 TAB PO; CARDURA2 MG PO; CARDURA4 MG PO; GLUCOSAMINE HC500 MG PO; METOPROLOL TART50 MG PO; NAPROSYN500 MG PO; PLAVIX75 MG PO; Procardia XL PO; SYNTHROID50 MCG PO; ZANAFLEX4 MG PO; ZOCOR20 MG PO
[2019-06-27] MEDS ORDERED: SYNTHROID75 MCG PO (10:55)
[2019-06-27] MEDS ORDERED: PROCARDIA XL30 MG PO (11:01)
[2019-06-27 11:14] VITALS: BP 144/72; BMI 25.8
[2019-06-27 11:22] LABS: HEMATOCRIT 35.1 % (36.0-48.0); HEMOGLOBIN 12.6 g/dL (12-16); MCH 33.2 pg (26.0-34.0); MCHC 35.9 g/dL (31.0-37.0); MCV 92.6 fL (80.0-100.0); MEAN PLATELET VOLUME 9.6 fL (7.4-10.4); RBC 3.79 10x6/uL (4.00-5.40); RDW 12.7 % (11.5-14.5); WBC 7.3 10x3/uL (4.8-10.8)
[2019-06-27 11:29] LABS: ANION GAP 13.7 mmol/L (8-16); CALCIUM 8.8 mg/dL (8.5-10.1); CARBON DIOXIDE 25.1 mmol/L (21.0-32.0); CREATININE - SERUM 1.3 mg/dL (0.6-1.3); POTASSIUM - SERUM 3.8 mmol/L (3.5-5.1)
[2019-06-27 11:39] LABS: APTT 31.3 SECONDS (22.8-39.4); INR 0.98 (0.85-1.17); PROTIME 12.4 SECONDS (11.6-15.0)
[2019-06-27 16:38] VITALS: BP 152/83; Ht 162.6 cm; Wt 71.4 kg
--- NOTE | 2019-06-27 16:51 | NUR ---
TRANSFER FROM BENEFITS ASSISTANT. VS WNL. RIGHT CHEST DRSG CLEAN AND DRY. LEFT ARM IN SLING. WILL CONT. PLAN OF CARE.
--- NOTE | 2019-06-27 20:34 | NUR ---
RECIEVED BEDSIDE REPORT. RECIEVED UP IN BED WITH EYES OPEN AND TV ON. ALERT AND ORIENTED X4. UP WITH ASSIST AT THIS TIME. DSG TO LEFT CHEST CDI. SLING TO LEFT ARM. EDUCATED ON LEFT ARM NONUSE. VERBALIZED UNDERSTANDING. DENIES ANY PAIN OR NEEDS AT THIS TIME.
[2019-06-28] VITALS: BP 134/80
[2019-06-28 04:00] VITALS: BP 169/70
[2019-06-28 09:51] VITALS: BP 177/95
--- NOTE | 2019-06-28 10:34 | NUR ---
IV AND TELEMETRY DCD. DC PLANS GIVEN. UNDERSTANDING VOICED. ESCORTED TO CAR BY W/C.
--- NOTE | 2019-06-28 14:22 | OP ---
PATIENT NAME: CHERRI GRIMM MEDICAL RECORD: [id number] :34 LOCATION:D.M2 D.2114 ADMISSION DATE:06/27/19 SURGEON: DAE KIRK MD DATE OF OPERATION: 06/27/2019 PROCEDURE: Lead portion of permanent pacer placement. SURGEON: Jefe Winter MD INDICATION: Sick sinus syndrome with pauses. DESCRIPTION OF PROCEDURE: After the left subclavian was cannulated via modified Seldinger technique via Dr. Winter first under fluoroscopic guidance, I placed the RV lead into the RV apex without difficulty. After adequate R-waves and thresholds were obtained, again under fluoroscopic guidance, right atrial lead was placed in the right atrial appendage without difficulty. After adequate P-waves and thresholds were obtained, the leads were attached to the appropriate poles of the generator and the pocket was closed via Dr. Winter. IMPRESSION: Successful lead portion of permanent pacemaker placement. ESTIMATED BLOOD LOSS: Minimal. COMPLICATIONS: None. DISPOSITION: To the floor, stable. TRANSINT:[id number] Voice Confirmation ID: [id number] DOCUMENT ID: [id number] DAE KIRK MD at 1422 CC: [id number] DICTATION DATE: 06/27/19 1607 MANAGER PLANT: 06/28/19 0047 DIS IN 06/28/19 [id number] [place] [address]
--- NOTE | 2019-06-30 11:37 | OP ---
PATIENT NAME: CHERRI GRIMM MEDICAL RECORD: [id number] :34 LOCATION:D.CAT ADMISSION DATE: SURGEON: JEFE RAMOS MD DATE OF OPERATION: 06/27/2019 PREOPERATIVE DIAGNOSES: 1. Sick sinus syndrome. 2. Hypertension. 3. Coronary artery disease. POSTOPERATIVE DIAGNOSES: 1. Sick sinus syndrome. 2. Hypertension. 3. Coronary artery disease. PROCEDURE IN DETAIL: Left subclavian vein dual lead pacemaker placement. SURGEON: Jefe Ramos MD CO-SURGEON: Shay Dior MD REPORT OF OPERATION: The patient's left chest was prepped and draped in sterile fashion. A 20 mL of 1% lidocaine with epinephrine was infused into the surrounding tissues. A transverse incision was made on the left superior lateral chest and a subcutaneous pouch was made over the pectoral fascia. Stella were used to cannulate the left subclavian vein and guidewires were advanced times 2. Fluoro was used to note that the wires were in good position in the venous system. The dilator trocar device were placed over the wires and the wires and dilators were removed. The leads were advanced through the trocars and placed into the superior vena cava. At this point, Dr. Dior positioned the leads appropriately in the atrium and ventricle. Once the leads were noted to be functioning appropriately and in the right position, they were sutured into place with 0 Ti-Cron. The leads were affixed to the pacemaker, which was placed into the subcutaneous pouch and sutured to the pectoral fascia using a single interrupted 0 Ti-Cron. We irrigated out the wound with antibiotic solution. The subcutaneous tissues were reapproximated with interrupted 3-0 Vicryl and the skin was closed with running subcutaneous 5-0 Monocryl. COMPLICATIONS: None. CONDITION: Stable. ANESTHESIA: Local MAC. BLOOD LOSS: Minimal. TRANSINT:[id number] Voice Confirmation ID: [id number] DOCUMENT ID: [id number] OPERATIVE REPORT [id number] EARNESTCHERRI BROUSSARD JEFE PERSON MD at 1137 CC: [id number] DICTATION DATE: 06/27/19 1607 BRUSHING OPERATOR: 06/28/19 0054 DEP CLI 06/28/19 [id number] [place] [address]
== END 2019-06-28 10:56 | disposition home or self-care (01) ==
LOC: OBSVTIME → D.CATH 10:12 → D.M2 16:12 → D.CATH 18:44 → D.M2 18:45 → D.CATH 18:45 → OBSVTIME 18:45 → D.CATH 06-28 10:56 → D.M2 06-28 10:56
PROVIDERS: ATTEND Internal Medicine Interventional Cardiology
DX: I49.5 Sick sinus syndrome (principal); I25.10 Atherosclerotic heart disease of native coronary artery without angina pectoris; I10 Essential (primary) hypertension

== ENCOUNTER 2019-09-01 13:17 | Emergency (ER) | payer MEDICARE, BC ==
[~2019-09-01] VITALS: Ht 162.6 cm; Wt 68.2 kg
[~2019-09-01 13:17] MED LIST changes: +PROCARDIA XL30 MG PO; +SYNTHROID75 MCG PO
[2019-09-01 13:21] VITALS: Ht 162.6 cm; Wt 68.2 kg
[2019-09-01] MEDS ORDERED: METOPROLOL TART50 MG PO (13:23)
[2019-09-01 16:10] VITALS: BP 142/81
== END 2019-09-01 16:11 | disposition home or self-care (01) ==
LOC: D.ER 13:17
DX: S52.502A Unspecified fracture of the lower end of left radius, initial encounter for closed fracture (principal); W19.XXXA Unspecified fall, initial encounter; Y93.9 Activity, unspecified; Y92.9 Unspecified place or not applicable; E07.9 Disorder of thyroid, unspecified; I10 Essential (primary) hypertension; Z95.0 Presence of cardiac pacemaker

== ENCOUNTER → 2020-06-27 08:56 | Outpatient (CLI) | payer MEDICARE, BC ==
[2019-09-01 13:21] VITALS: BMI 25.8
== END | disposition home or self-care (01) ==
LOC: D.CT 08:56
PROVIDERS: ATTEND Family Medicine
DX: K58.9 Irritable bowel syndrome, unspecified (principal)

== ENCOUNTER → 2021-02-17 10:33 | Outpatient (CLI) | payer MEDICARE, BC ==
[2019-09-01 13:21] VITALS: BMI 25.8
== END | disposition home or self-care (01) ==
LOC: D.RAD 10:30
PROVIDERS: ATTEND Internal Medicine Gastroenterology
DX: R10.30 Lower abdominal pain, unspecified (principal); K92.1 Melena; R19.4 Change in bowel habit